=== PATIENT | female | born 1970 | race Caucasian/White ===

== ENCOUNTER 2023-03-14 09:35 | Outpatient (CLI) | payer BC | END 2023-03-14 09:36 | disposition home or self-care (01) | LOC: SCSRAD 09:35 | PROVIDERS: ATTEND Nurse Practitioner Family | DX: J45.20 Mild intermittent asthma, uncomplicated (principal); E21.3 Hyperparathyroidism, unspecified; R06.00 Dyspnea, unspecified | CPT/HCPCS: 71046 ==